=== PATIENT | male | born 1995 | race African-American/Black ===

== ENCOUNTER 2017-04-17 16:48 | Emergency (ER) | payer SELFPAY | END 2017-04-17 18:03 | disposition left against medical advice (07) | LOC: ERS 16:48 | DX: Z53.21 Procedure and treatment not carried out due to patient leaving prior to being seen by health care provider (principal) ==

== ENCOUNTER 2019-07-09 18:38 | Emergency (ER) | payer SELFPAY ==
[2019-07-09 19:39] LABS: Bilirubin Negative (Negative); Blood, Urine 1+ (Negative); Clarity Extra Turbid (Clear); Glucose, Urine (Dipstick) Normal (Negative); Leukocyte 500 Leu/uL (Negative); Nitrite Negative (Negative); Protein, Urine (Dipstick) 70 mg/dL (Neg-Trace); Squamous Epithelial None Seen HPF (0-3); WBC/HPF Greater than 50 HPF (0-3)
[2019-07-09 19:50] LABS: Bacteria/HPF Rare-Few HPF (None Seen)
[2019-07-09] MEDS ORDERED: Lidocaine 1% PF 5 ML VIAL ONE (19:52)
[2019-07-09] MEDS ORDERED: Azithromycin 250 MG TAB ONE (19:52)
[2019-07-09] MEDS ORDERED: cefTRIAXone\\ROCEPHIN 250 MG VIAL ONE (19:52)
== END 2019-07-09 20:24 | disposition home or self-care (01) ==
LOC: ERS 18:38
DX: N34.2 Other urethritis (principal); F17.210 Nicotine dependence, cigarettes, uncomplicated
CPT/HCPCS: 81003; 81015; 87491; 87591; 96372; 99283; J0696; J2001

== ENCOUNTER 2020-02-23 08:00 | Emergency (ER) | payer SELFPAY ==
[2020-02-23] MEDS ORDERED: Ketorolac Tromethamine 30 MG/ML VIAL ONE (09:10)
--- NOTE | 2020-02-28 13:25 | EKG ---
Test Reason : Blood Pressure : / mmHG Vent. Rate : 066 BPM Atrial Rate : 066 BPM P-R Int : 142 ms QRS Dur : 106 ms QT Int : 394 ms P-R-T Axes : 064 047 037 degrees QTc Int : 413 ms Normal sinus rhythm Incomplete right bundle branch block Borderline ECG Confirmed by CHRIS CERNA DO ([id number]), commissioning editor TERRI MAO ([id number] on 02/28/2020 1:25:09 PM Referred By: Confirmed By:CHRIS CERNA DO
== END 2020-02-23 09:35 | disposition home or self-care (01) ==
LOC: ERS 08:00
DX: R07.89 Other chest pain (principal); F17.210 Nicotine dependence, cigarettes, uncomplicated
CPT/HCPCS: 93005; 96372; J1885

== ENCOUNTER 2020-10-16 17:08 | Emergency (ER) | payer SELFPAY ==
[2020-10-16] MEDS ORDERED: Naproxen 500 MG TAB ONE (18:00)
== END 2020-10-16 18:10 | disposition home or self-care (01) ==
LOC: ERS 17:08
DX: M25.572 Pain in left ankle and joints of left foot (principal); F17.210 Nicotine dependence, cigarettes, uncomplicated; X50.1XXA Overexertion from prolonged static or awkward postures, initial encounter

== ENCOUNTER 2021-11-14 11:01 | Emergency (ER) | payer SELFPAY | END 2021-11-14 13:02 | disposition left against medical advice (07) | LOC: ERS 11:01 | DX: Z53.21 Procedure and treatment not carried out due to patient leaving prior to being seen by health care provider (principal) ==